=== PATIENT | male | born 1975 | race American Indian/Alaskan Native ===

== ENCOUNTER 2017-03-05 06:41 | Emergency (ER) | payer OTHER ==
[2017-03-05] MEDS ORDERED: TORADOL ONE (06:44)
[2017-03-05] MEDS ORDERED: TORADOL IM ONE (06:54)
[2017-03-05 07:04] VITALS: BP 102/60
[2017-03-05] MEDS ORDERED: BOOSTRIX IM ONE ×2 (08:19→08:21)
[2017-03-05] MEDS ORDERED: ZOFRAN ODT PO ONE (08:20)
[2017-03-05] MEDS ORDERED: NORCO 5/325 PO ONE (08:20)
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
== END 2017-03-05 10:02 | disposition home or self-care (01) ==
LOC: ED 06:41
DX: S92.322A Displaced fracture of second metatarsal bone, left foot, initial encounter for closed fracture (principal); S92.332A Displaced fracture of third metatarsal bone, left foot, initial encounter for closed fracture; S92.342A Displaced fracture of fourth metatarsal bone, left foot, initial encounter for closed fracture; V23.4XXA Motorcycle driver injured in collision with car, pick-up truck or van in traffic accident, initial encounter; Y93.9 Activity, unspecified; Y99.9 Unspecified external cause status; Y92.410 Unspecified street and highway as the place of occurrence of the external cause; Z88.6 Allergy status to analgesic agent
CPT/HCPCS: 29515; 73562; 73610; 73630; 90471; 90715; 96372; 99284; J1885